=== PATIENT | male | born 1985 | race African-American/Black ===

== ENCOUNTER 2023-01-10 12:08 | Emergency (ER) | payer MEDICAID, OTHER ==
[~2023-01-10] VITALS: Ht 182.9 cm; Wt 250.0 kg
[2023-01-10] MEDS ORDERED: HYDR50TA PO (12:11)
[2023-01-10] MEDS ORDERED: AMLO10TA55 PO (12:11)
[2023-01-10 12:12] VITALS: TEMP 97.5
[2023-01-10] MEDS ORDERED: IBUPROFEN 600 MG TABLET PO ONE (13:45)
[2023-01-10] MEDS ORDERED: HYDROCODONE/ACETAMINOPHEN 5-325 MG TABLET PO ONE (13:45)
[2023-01-10] MEDS ORDERED: HYDR-4072 PO (14:14)
[2023-01-10] MEDS ORDERED: IBUP-1554 PO (14:14)
[2023-01-10 14:48] VITALS: BP 141/87; PULSE 81; RESP 16
== END 2023-01-10 15:03 | disposition home or self-care (01) ==
LOC: EMS 12:08
DX: S83.91XA Sprain of unspecified site of right knee, initial encounter (principal); F10.90 Alcohol use, unspecified, uncomplicated; F12.90 Cannabis use, unspecified, uncomplicated; Y90.9 Presence of alcohol in blood, level not specified; X58.XXXA Exposure to other specified factors, initial encounter; Y93.89 Activity, other specified; Y92.89 Other specified places as the place of occurrence of the external cause; Y99.8 Other external cause status
CPT/HCPCS: 99283